=== PATIENT | male | born 1965 | race Asian ===

== ENCOUNTER 2016-12-12 04:59 | Day surgery (SDC) | payer OTHER ==
[2016-12-11 12:45] VITALS: BMI 23.8
[2016-12-12] MEDS ORDERED: ROPIVACAINE HCL 0.5% 30ML VIAL ONE (11:03)
[2016-12-12] MEDS ORDERED: MIDAZOLAM HCL 2 MG/2 ML SINGLE DOSE VIAL ONE ×2 (11:04)
--- NOTE | 2016-12-12 13:08 | HP ---
Satellite [facility] [place] - Chief Complaint Chief Complaint: right achilles rupture - Past Medical History Allergies/Adverse Reactions: Allergies Allergy/AdvReac Type Severity Reaction Status Date / Time shellfish derived Allergy Mild Hives Verified 12/11/16 12:39 - Current Medications Current Medications: Home Medications Medication Instructions Recorded Hydrocodone/Acetaminophen [[place] 1 each PO Q6H PRN #40 tablet MDD 4 12/12/16 5-325 Tablet] Satellite Physical Exam - Physical Examination Vital Signs: Vital Signs Period Temp Pulse Resp BP Sys/Albert Pulse Ox Last 24 Hr 98.2 F 64 18 119/82 100 General Appearance: Well Nourished, Well Developed, Alert & Oriented x3 ENT: Clear Lung: Normal air movement Heart: Regular rate & rhythm Extremities: Other (right ankle- + swelling, + ttp, + defect achilles, + callahan, nvi) Neurological: Intact, Alert, Oriented Satellite Impression/Plan - Impression/Plan Impression: right achilles tendon rupture Operative Procedure: right achilles tendon repair Date to be Performed: 12/12/16
[2016-12-12] MEDS ORDERED: PROPOFOL 20 ML ONE ×3 (13:46→14:42)
[2016-12-12] MEDS ORDERED: ceFAZolin SODIUM 1 GM VIAL IVPB ONE (13:49)
--- NOTE | 2016-12-12 15:05 | OP ---
Operative Note - Note: Operative Date: 12/12/16 ([facility]) Pre-Operative Diagnosis: right achilles tendon rupture Operation: right achilles tendon repair Post-Operative Diagnosis: Same as Pre-op Surgeon: Danilo Ny Shelter Monitor: Dimitrios Morris Anesthesiologist/HORSE SHOW JUDGE: Sarah Ramirez Anesthesia: Spinal, Local Estimated Blood Loss (mls): 0 (tourniquet) Operative Report Dictated: Yes
[2016-12-12] MEDS ORDERED: oxyCODONE HCL 5 MG TABLET PO PRN (15:14)
[2016-12-12] MEDS ORDERED: PROMETHAZINE HCL 25 MG/1 ML VIAL IVPUSH PRN (15:14)
[2016-12-12] MEDS ORDERED: ONDANSETRON 4 MG/2 ML VIAL IVPUSH PRN (15:14)
[2016-12-12 16:41] VITALS: TEMP 97.6
[2016-12-12 20:05] VITALS: BP 130/80; PULSE 80
--- NOTE | 2016-12-13 07:38 | OP ---
DATE OF OPERATION: 12/12/2016 PREOPERATIVE DIAGNOSIS: Right Achilles tendon rupture. POSTOPERATIVE DIAGNOSIS: Right Achilles tendon rupture. PROCEDURE PERFORMED: Right Achilles tendon repair. SURGEON: Danilo Ny MD BUSINESS COMPUTERS TEACHER: OMAYRA Johnson SPECIMENS: None. DRAINS: None. COMPLICATIONS: None. BLOOD LOSS: None. BLOOD GIVEN: None. FLUID REPLACEMENT: 1000 mL. INDICATIONS: The patient is a 51-year-old male with the preoperative diagnosis of an acute right Achilles tendon rupture. After understanding the potential risks, complications, alternatives and benefits of surgery versus nonsurgical treatment, the patient elected to undergo this procedure. DESCRIPTION OF PROCEDURE: The patient was brought to the operating room, peripheral IV placed, IV sedation given. Two grams of IV Ancef was given. A popliteal block was performed. MAC anesthesia was induced. He was placed in the prone, and a tourniquet was applied to the right upper thigh. The right lower extremity was prepped and draped in sterile fashion, elevated and exsanguinated with an Esmarch bandage. Tourniquet inflated to 275 mmHg. A lazy-S incision was marked out over the distal aspect of the right Achilles tendon. The incision was made with a number 15 scalpel blade. Subcutaneous hemostasis was achieved with Bovie cautery. Dissection was done down to the posterior aspect of the Achilles tendon sheath. It was incised with a number 15 scalpel blade. The proximal and distal stumps of the Achilles tendon were identified. He had a complete rupture, the ends were quite frayed. I mobilized both stumps with Metzenbaum scissors and a [place] elevator. They came together well. The area was copiously irrigated and washed out. Next, 4 FiberWire sutures were placed, two distally and two proximally, in a running up-and-down locking whipstitch fashion. We then put the ankle into plantar flexion, reapposed the 2 ends and tied the FiberWire tails to each other. I then supplemented the repair with multiple number 1 TiCron sutures, both across the rupture site and also tacking down an extra flap of tendon. It came together well. There was some tension on the repair. Therefore, he will be splinted in plantar flexion. Next, closure was done with 2-0 Vicryl in the deep dermal layer and final skin reapproximation was done with cristiana. The area was then washed and dried, covered with Xeroform, 4 x 4 gauze, Webril, and a posterior fiberglass splint was applied, again keeping the foot in plantar flexion. The tourniquet was taken down after total tourniquet time of about 50 minutes. There were no complications during the case. The patient tolerated the procedure well and was brought to the ambulatory recovery room in stable condition. Brissa [id number]
== END 2016-12-12 20:23 | disposition home or self-care (01) ==
LOC: JASU-SURG 04:59
PROVIDERS: ATTEND Orthopaedic Surgery
PROC: 0LQN0ZZ Repair Right Lower Leg Tendon, Open Approach (ICD-10-PCS; principal; 2016-12-12 11:30)
DX: S86.011A Strain of right Achilles tendon, initial encounter (principal); X58.XXXA Exposure to other specified factors, initial encounter; Y93.9 Activity, unspecified; Y92.9 Unspecified place or not applicable
CPT/HCPCS: 94760; 97116-GP